=== PATIENT | male | born 1960 | race Caucasian/White ===

== ENCOUNTER → 2019-09-29 08:48 | Outpatient (CLI) | payer BC, SELFPAY | PROVIDERS: PCP Family Medicine; Visit Provider Family Medicine | DX: Z71.3 Dietary counseling and surveillance (principal); E11.9 Type 2 diabetes mellitus without complications | CPT/HCPCS: 97802 ==

== ENCOUNTER 2020-11-10 14:33 | Emergency (ER) | payer BC, SELFPAY ==
[2020-11-10 14:40] VITALS: BP 138/78; PULSE 87; RESP 16; TEMP 37.2; O2SAT 98; BMI 32.5
--- NOTE | 2020-11-10 14:47 | HMH.EDUTC ---
[facility] [place] Disposition Clinical Impression: Viral syndrome, Exposure to COVID-19 virus, Bronchitis Disposition: Home, Self-Care Condition on Discharge: Good Instructions: DI for COVID-19 (Suspected or Confirmed ), Preventing the Spread of Coronavirus Discharge Instructions Additional Instructions: Drink plenty of fluids. Take tylenol for pain or fever. Return if you begin to have difficulty breathing. Follow up with your regular doctor. GO TO THE ER FOR ANY WORSENING SYMPTOMS Prescriptions: Ondansetron [Zofran 4mg ODT] 4 mg PO Q8HP PRN #12 tab.rapdis PRN Reason: Nausea [facility] Benzonatate [Tessalon Perle 100mg Cap] 100 mg PO TIDP PRN #30 cap PRN Reason: Cough Transmission Status: [facility] Azithromycin [Z-Kelvin 250mg Tab*] 250 mg PO UD DOSE PK #6 tab Transmission Status[facility] Referrals: Rodrick Shah [Primary Care Provider] - Time of Disposition: 14:53 Medical Decision Making - Medical Records Medical records reviewed: No: I reviewed the patient's medical records. - Minesh Inquiry Pt receiving controlled substance: No Vital Signs: 11/10/20 14:40 11/10/20 14:57 Temperature 98.9 F 98.9 F Temperature Source Oral Oral Pulse Rate 88 Pulse Rate [Right] 87 Respiratory Rate 16 16 Blood Pressure 130/70 Blood Pressure [Right Arm] 138/78 Blood Pressure Mean [Right Arm] 98 Blood Pressure Source Automatic Cuff Blood Pressure Source [Right Arm] Automatic Cuff Blood Pressure Position Sitting 02 Sat by Pulse Oximetry 98 Oxygen Delivery Method Room Air Room Air Orders (Tests/Meds): ORDERS Category Date Time Status Covid-19 Nasal PCR ([facility]) Routine Lab 11/10/20 14:40 Received [facility] [place] HPI - General Stated complaint: covid test Time Seen by Provider: 11/10/20 14:47 Mode of Arrival: Ambulatory Source of Information: Patient Limitations: No Limitations Description of Symptoms (Recalled from Triage Doc. by RN): pt advises he has been feeling bad, with chills, low grade fever, body aches and yesterday he started losing his taste and smell HEENT Symptoms (Recalled from RN notes): No Resp Symptoms (Recalled from RN notes): No Skin Symptoms (Recalled from RN notes): No MS Symptoms (Recalled from RN notes): No Functional Status (Recalled from RN notes): na - History of Present Illness Provider Complaint: He states that for the past 4 days he has been having a scratchy sore throat, cough, chest congestion, and body aches. - Related Data Previous Rx's Medication Instructions Recorded Azithromycin [Z-Kelvin 250mg Tab*] 250 mg PO UD DOSE PK #6 tab 11/10/20 Benzonatate [Tessalon Perle 100mg 100 mg PO TIDP PRN #30 cap 11/10/20 Cap] Ondansetron [Zofran 4mg ODT] 4 mg PO Q8HP PRN #12 tab.rapdis 11/10/20 Allergies Allergy/AdvReac Type Severity Reaction Status Date / Time No Known Allergies Allergy Verified 11/10/20 14:44 - Worker's Comp Is this a Worker's Comp case?: No [facility] History - Hepatitis A Screen Drug use history?: No High risk sexual behaviors?: No History of sexually transmitted infection?: No Currently employed?: No Childcare worker?: No Do you have indoor plumbing?: Yes Do you have electricity?: Yes Attestation statement:: This patient has been screened for Hepatitis A risk factors. I have reviewed the patient's past medical history: Yes ROS Obtained: Yes All systems reviewed & no additional complaints - Constitutional Constitutional: Reports body ache, Reports chills, Denies fever(s), Reports poor appetite, Reports malaise - Eyes Eyes: Denies change in vision, Denies eye discharge - ENT Ears, Nose, Mouth, and Throat: Reports as per HPI - Cardiovascular Cardiovascular: Denies chest pain - Respiratory Respiratory: Reports chest congestion, Reports cough, Denies dyspnea, Denies stridor, Denies wheezing - Gastrointestinal Gastrointestingal: Den
[2020-11-10 14:57] VITALS: BP 130/70; PULSE 88; RESP 16; TEMP 37.2; O2SAT 98
--- NOTE | 2020-11-11 09:14 | PC.NURSE ---
patient notified of positive covid results
== END 2020-11-10 14:58 | disposition home or self-care (01) ==
PROVIDERS: Emergency Provider Nurse Practitioner Family; PCP Family Medicine
DX: U07.1 COVID-19 (principal); J20.9 Acute bronchitis, unspecified
CPT/HCPCS: 99202; G0463; U0003

== ENCOUNTER → 2020-11-18 15:26 | Outpatient (CLI) | payer BC, SELFPAY ==
--- NOTE | 2020-11-18 15:30 | XR_ITS ---
PROCEDURE: XR KUB CLINICAL INDICATION: kidney stone Right-sided pain COMPARISON: No exams were available for comparison FINDINGS: No renal calculi evident. There is a 4 mm calcific density in the right pelvic region. This may represent a phleboliths. There are no previous exams available for comparison. IMPRESSION: Suspected phleboliths in the right pelvic region. A distal ureteral stone is not excluded. Dictated by: Bradley Fontanez MD 11/18/2020 15:48 Bradley Fontanez MD in [place] 11/18/2020 15:48
[2020-11-19 10:55] LABS: Coronavirus 19 IgG Antibody Positive (Negative)
[2020-11-19 10:56] LABS: Coronavirus 19 IgM Antibody Positive (Negative)
== END ==
LOC: RAD 15:27 → COVID.OUT 16:18
PROVIDERS: PCP Family Medicine; Visit Provider Urology
DX: Z01.818 Encounter for other preprocedural examination (principal); Z20.822 Contact with and (suspected) exposure to COVID-19; U07.1 COVID-19; N20.0 Calculus of kidney; N20.1 Calculus of ureter
CPT/HCPCS: 74018; 86328; U0003

== ENCOUNTER 2020-11-21 07:33 | Day surgery (SDC) | payer BC, SELFPAY ==
[2020-11-21 08:00] VITALS: BP 126/76; PULSE 88; RESP 18; TEMP 36.6; O2SAT 98; BMI 33.0
[2020-11-21 08:25] LABS: POC Glucose,Bedside 98 (70-110)
--- NOTE | 2020-11-21 09:46 | HMH.ANESCL ---
[facility] Anesthesia Checklist - Patient Identification Patient Identification: Arm Band - Structural Data Admitted From: Home Planned Operative Procedure/s: Right ureteroscopy with laser stone extraction Consent for Planned Operative Procedure(s) Verified: Yes Verified Documents: Surgical Consent, History and Physical - NPO Status Verified Time NPO: 00:00 - Additional verifications Anesthesia Reactions: Yes (nausea) Hx Blood Transfusions: No Blood Transfusion Reaction: No - Airway Assessment C-Spine Mobility Assessed: Yes (mp2) TMJ Mobility Assessed: Yes Dentition: Good Dentition - Neurological Assessment Level of Consciousness: Awake, Alert - Anesthesia Plan Anesthesia Risk discussed: Yes Anesthesia Plan: Verified ASA Class: II Anesthesia Type: General [facility] History Medical History: Reports:: Diabetes Mellitus Type 2, Hyperlipidemia, Hypertension, Kidney Stones Denies:: Cancer, Diabetes Mellitus Type 1, Internal Pacemaker, MRSA, Seizures *Have you ever received a pneumonia vaccine?: No *Have you received a flu vaccine this season?: Yes Other Medical History: Reports: Thyroid Disease. Denies: Blood Transfusion Reaction Anesthesia experience/problems:: nac Laterality Cases: Bilateral: Arthroscopy Shoulder Other Surgeries: Yes: Colonoscopy. No: Pacemaker Amputation: No - *Social History Last grade of school completed: High school graduate Smoking Status: Never smoker Alcohol Intake: never Substance Use Type: denies use *Occupational Status:: employed, unemployed Housing: house Household Members: spouse *Travel in the last 8 weeks: None Family Hx:: Cancer, Diabetes, Hypertension
--- NOTE | 2020-11-21 10:27 | XR_ITS ---
PROCEDURE: XR KUB CLINICAL INDICATION: URETEROSCOPY WITH STONE EXTRACTION COMPARISON: DX XR KUB from 11/18/2020 FINDINGS: Fluoroscopy time: 1 minutes and 9 seconds. Right ureteroscopy was performed with stone extraction the distal ureter. A ureteral stent was then placed with the proximal aspect in the right mid abdominal region and the lower aspect in the region of urinary bladder. IMPRESSION: Status post stone extraction with stent placement Dictated by: Bradley Fontanez MD 11/21/2020 15:40 Bradley Fontanez MD in [place] 11/21/2020 15:40
--- NOTE | 2020-11-21 10:32 | P.PN_ITS ---
[facility] Anesthesia Record Part I Intake, IV Amount: 1,000 Estimated blood loss (mL): 0 Urine output (mL): 0 Blood Pressure: 116/79 SaO2: 94 Pulse Rate: 100 Respiratory Rate: 16 Temperature: 97.6 F Patient is:: Drowsy, Stable Stable to PACU at:: 10:25
[2020-11-21 10:33] VITALS: BP 116/79; PULSE 100; RESP 16; TEMP 36.4; O2SAT 94
[2020-11-21 10:35] VITALS: BP 132/49; PULSE 94; RESP 16; TEMP 36.4; O2SAT 96
[2020-11-21 10:45] VITALS: BP 126/86; PULSE 103; RESP 16; O2SAT 96
[2020-11-21 10:55] VITALS: BP 136/68; PULSE 102; RESP 16; O2SAT 96
[2020-11-21 11:05] VITALS: BP 138/85; PULSE 101; TEMP 36.4; O2SAT 94
--- NOTE | 2020-11-21 11:15 | P.OP_ITS ---
Date of procedure: 11/21/20 Pre-op Diagnosis:: Right distal ureteral stone Post-op Diagnosis:: Right distal ureteral stone/ureteral stenosis Procedure performed:: Cystoscopy with right ureteral dilation, right ureteroscopy, laser lithotripsy left ureteral stone, stone extraction and right stent placement Surgeon:: Gray Caballero MD RESEARCH/PROGRAM DIRECTOR:: Owen Howell Anesthesia: GETA Estimated blood loss (mL): 0 Clinical Note:: Patient is a 60-year-old white male with a several week history of right flank pain noted to have a 5 mm distal ureteral stone on recent CT scan. He continues to be symptomatic and wishes to proceed with urologic management. He was tested positive for Covid-19 9 days ago. This was not known to me at the time of his office visit and we are going to proceed with his surgery under PPE. Operative findings:: 5 mm right distal ureteral stone with right ureteral stenosis Operative note:: Patient taken to the operating room after informed consent was obtained. He was placed on the operating table in the supine position and general anesthesia administered. Preoperative antibiotics and sequential compression devices were placed. Was then placed into the dorsal lithotomy position and prepped and draped in the standard surgical fashion. A 22 Norwegian cystoscope was introduced into the urethral meatus. Passed into the bladder without difficulty and the bladder examined in a systematic fashion. There is no evidence of mucosal changes, stones, diverticula or trabeculation. The ureteral orifices in their normal anatomic position. Small median lobe was noted. A guidewire was passed into the right distal ureteral orifice and under fluoroscopy passed by the stone without difficulty. The cystoscope then removed and our semirigid ureteroscope passed into the bladder and into the distal ureter but there was a stenotic portion of the ureter just inside the ureteral orifice so the ureteroscope was removed and the distal ureter was dilated with a 4 x 15 mm UroMax balloon dilator under fluoroscopic guidance for 2 minutes at 12 bisi. The balloon then deflated and the semirigid ureteroscope was passed back into the bladder and into the right ureteral orifice. It bypassed the ureteral stenosis now without difficulty and up to the level of the stone. Stone was grasped with a 2.4 Norwegian nitinol stone basket but was too big to bring through the ureter. We then disengaged the stone and a 200 nm laser passed through the scope and the stone fragmented into small pieces. The laser fiber removed and our stone basket was replaced and all the stone fragments were removed without difficulty. The ureteroscope then removed and the cystoscope was backloaded over the safety wire and a 4.8 x 26 Norwegian stent was passed over the wire and the wire removed. A good curl was noted proximally and distally under fluoroscopy. The string was left on for later removal. Urojet was placed into the urethra for comfort measures. The patient tolerated procedure well. Condition: stable Disposition: PACU Specimens:: Stone fragments were irrigated free but not sent Complications:: None
--- NOTE | 2020-11-21 15:44 | SUR.OPER ---
PPE worn by all staff members
--- NOTE | 2020-11-22 09:48 | HMH.ANESII ---
[facility] Anesthesia Record Part II Discharge Time: 10:35 Destination: Surgical Day Care (OP Surgery) PACU nurse assessment reviewed?: Yes Patient Condition:: Good Anesthesia Complications:: None Swallowing reflex intact?: Yes Cyanosis?: No Blood Pressure: 132/49 Pulse Rate: 92 Temperature: 97.6 F Mental Status: Alert & Oriented Pain level:: 0 Nausea and/or vomitting:: None Intake, IV Amount: 0
[2020-11-22 09:49] VITALS: BP 132/49; PULSE 92; TEMP 36.4
== END 2020-11-21 11:13 | disposition home or self-care (01) ==
LOC: OR 07:35
PROVIDERS: PCP Family Medicine; Visit Provider Urology
PROC: (CPT 52352; principal; 2020-11-21 09:00)
DX: N20.1 Calculus of ureter (principal); N35.919 Unspecified urethral stricture, male, unspecified site; Z87.442 Personal history of urinary calculi; E11.9 Type 2 diabetes mellitus without complications; I10 Essential (primary) hypertension; E78.5 Hyperlipidemia, unspecified; E07.9 Disorder of thyroid, unspecified; Z87.39 Personal history of other diseases of the musculoskeletal system and connective tissue; Z80.9 Family history of malignant neoplasm, unspecified; Z83.3 Family history of diabetes mellitus; Z82.49 Family history of ischemic heart disease and other diseases of the circulatory system; Z79.899 Other long term (current) drug therapy
CPT/HCPCS: 52353; 74018; 76000; 82962; C2617; J2405

== ENCOUNTER 2021-05-05 11:13 | Emergency (ER) | payer BC, SELFPAY ==
[2021-05-05 11:15] VITALS: BP 124/84; PULSE 94; RESP 19; TEMP 36.9; O2SAT 97; BMI 34.0
--- NOTE | 2021-05-05 11:55 | HMH.EDUTC ---
[facility] [place] Disposition Clinical Impression: Sinusitis Qualifiers: Sinusitis location: unspecified location Chronicity: unspecified Qualified Code(s): J32.9 - Chronic sinusitis, unspecified Disposition: Home, Self-Care Condition on Discharge: Good Instructions: Sinusitis, DI for Sinusitis, DI for COVID-19 (Suspected or Confirmed ), Preventing the Spread of Coronavirus Discharge Instructions Additional Instructions: *Monitor Temp, Over the counter Motrin or Tylenol as directed/as needed Tylenol every 4 hours and Motrin every 6 hours (as long as your family doctor has told you that you can take it) for fever or pain. and straight to ER if unable to lower temp less than 101.0 after medication given *Warm salt water gargles may help to soothe the throat *Throat Lozenges *Warm fluids like tea with honey may help to soothe the throat *Sleep elevated *Humidifier/Vaporizer *Flonase 2 sprays in each nostril daily but be aware that it may take 2-3 days before you notice improvement Take medication as prescribed Return if needed Follow up IMMEDIATELY for new or worsening symptoms or no Noticeable improvement over the next 48-72 hours. 911 for difficulty breathing or swallowing You were tested for today for COVID19 your test result should be back in the next 24-48 hours, you may call to the [facility] to see if your test results are back in the next 48 hours [phone] [facility] hours are 9am-9pm You was given a handout with instructions for Self Quarantine and Self isolation for while you wait on test results and what to do if they are positive If you are positive the Health Dept will be contacting you also Make sure to take your Vitamins Vit. C Vit D and Zinc if you can take them Prescriptions: Benzonatate [Tessalon Perle 100mg Cap*] 100 mg PO TID PRN #15 cap PRN Reason: Cough Transmission Status: [facility] Azithromycin [Z-Kelvin 250mg Tab] 250 mg PO DIRECTED #6 tab Transmission Status: [facility] to [facility] Referrals: Ryan Holliday MD [Primary Care Provider] - As needed Time of Disposition: 12:05 Medical Decision Making - Minesh Inquiry Pt receiving controlled substance: No Minesh was queried for this patient: No Vital Signs: 08/13/21 11:15 Temperature 98.5 F Temperature Source Oral Pulse Rate [Right Brachial] 94 H Respiratory Rate 19 Blood Pressure [Right Arm] 124/84 Blood Pressure Mean [Right Arm] 97 Blood Pressure Source [Right Arm] Automatic Cuff Blood Pressure Position [Right Arm] Sitting 02 Sat by Pulse Oximetry 97 Oxygen Delivery Method Room Air Orders (Tests/Meds): ORDERS Category Date Time Status Covid-19 Nasal PCR ([facility]) Routine Lab 05/05/21 11:40 Received Medical Decision Narrative: Patient states that he has taken azithromycin in the past without reactions or complications [facility] [place] HPI - General Stated complaint: sinus drainage, covid test Time Seen by Provider: 05/05/21 11:55 Mode of Arrival: Ambulatory Source of Information: Patient Limitations: No Limitations Description of Symptoms (Recalled from Triage Doc. by RN): PATIENT C/O COUGH WITH DARK GREEN SPUTUM AND SINUS PRESSURE HEENT Symptoms (Recalled from RN notes): Yes Resp Symptoms (Recalled from RN notes): Yes Skin Symptoms (Recalled from RN notes): No MS Symptoms (Recalled from RN notes): No Functional Status (Recalled from RN notes): WNL - History of Present Illness Provider Complaint: Patient state that he has been having sinus pain and pressure for over a week with dark greenish yellow mucous States that it feels like it is draining in the back of his throat and making him cough States that he was worried he may have COVID or a sinus infection and wanted to get checked - Related Data Home Medications Medication Instructions Recorded Confirmed metformin 500 mg tablet 1,000 mg PO BID 11/18/20 05/05/21 Atorvastatin Calcium [Lipitor 10mg 10 mg PO HS 05/05/21 05/05/21 Tab] Esomeprazole Magne
[2021-05-05 12:07] VITALS: BP 124/84; PULSE 94; RESP 19; TEMP 36.9; O2SAT 97
--- NOTE | 2021-05-05 20:51 | PC.NURSE ---
pt notified of positive covid test results
== END 2021-05-05 12:10 | disposition home or self-care (01) ==
PROVIDERS: Emergency Provider Nurse Practitioner; PCP Internal Medicine Adolescent Medicine
DX: U07.1 COVID-19 (principal); I10 Essential (primary) hypertension; E78.5 Hyperlipidemia, unspecified; E11.9 Type 2 diabetes mellitus without complications; Z79.899 Other long term (current) drug therapy
CPT/HCPCS: 99202; G0463; U0003

== ENCOUNTER → 2021-05-18 18:22 | Outpatient (CLI) | payer BC, SELFPAY ==
[2021-05-18 19:29] LABS: Alanine Aminotransferase 22 U/L (12-78); Albumin Level 4.5 g/dl (3.5-5.0); Albumin/Globulin Ratio 1.5 (1.1-1.8); Alkaline Phosphatase 43 U/L (38-126); Anion Gap 16.9 mEq/L (5-15); Aspartate Amino Transferase 30 U/L (17-59); Bilirubin,Total 0.5 mg/dl (0.2-1.3); Blood Urea Nitrogen 30 mg/dl (9-20); Calcium 10.5 mg/dl (8.4-10.2); Carbon Dioxide 25 mmol/L (22.0-30.0); Chloride 102 mmol/L (98-107); Chol/HDL Ratio 4.4 (1-3.5); Cholesterol 144 mg/dl (140-200); Estimated Glomerular Filt Rate 45 ml/min (>60); GFR (African American) 54 ML/MIN (>60); Glucose 112 mg/dl (74-100); HDL Cholesterol 33 mg/dl (40-60); Potassium 4.9 mmoL/L (3.5-5.1); Sodium 139 mmol/L (136-145); Total Protein,Serum 7.5 g/dl (6.3-8.2); Triglycerides 183 mg/dl (30-150); VLDL Cholesterol 37 mg/dL (0-40)
[2021-05-18 19:40] LABS: Direct LDL Cholesterol 82.38 mg/dL (100-129)
[2021-05-18 20:00] LABS: Thyroid Stimulating Hormone 2.56 uIU/mL (0.465-4.68)
== END ==
PROVIDERS: Visit Provider Internal Medicine Adolescent Medicine
DX: I10 Essential (primary) hypertension (principal); E78.5 Hyperlipidemia, unspecified; E03.9 Hypothyroidism, unspecified; E11.22 Type 2 diabetes mellitus with diabetic chronic kidney disease; Z79.84 Long term (current) use of oral hypoglycemic drugs
CPT/HCPCS: 80053; 80061; 83036; 84443

== ENCOUNTER → 2022-12-26 09:49 | Outpatient (CLI) | payer BC, SELFPAY ==
--- NOTE | 2022-12-26 09:55 | US_ITS ---
FINAL REPORT TECHNIQUE: Ultrasound images of the abdomen were obtained. CLINICAL HISTORY: CHERRI CARDONASAFrancoise COMPARISON: none FINDINGS: ABDOMINAL ULTRASOUND COMPLETE: The liver is fatty infiltrated. The gallbladder is normal. There is no gallbladder wall thickening. The common duct is normal at 6 mm. The right kidney measures 10.5 cm in length and is normal in echogenicity without hydronephrosis. The left kidney measures 10.0 cm in length and is normal in echogenicity without hydronephrosis. The spleen is unremarkable. The pancreas is obscured by overlying bowel gas. The visualized portions of the aorta and the IVC are normal. The vena cava is unremarkable. IMPRESSION: Fatty infiltration of the liver. Reviewed, Interpreted and Dictated by Bulmaro Lamb MD Transcribed by Shannan Templeton Authenticated and [facility]
== END ==
PROVIDERS: PCP Nurse Practitioner Family; Visit Provider Nurse Practitioner Family
DX: R89.9 Unspecified abnormal finding in specimens from other organs, systems and tissues (principal); R94.5 Abnormal results of liver function studies; E78.5 Hyperlipidemia, unspecified; E11.22 Type 2 diabetes mellitus with diabetic chronic kidney disease; N18.30 Chronic kidney disease, stage 3 unspecified; Z79.84 Long term (current) use of oral hypoglycemic drugs
CPT/HCPCS: 76700

== ENCOUNTER 2024-01-27 12:42 | Emergency (ER) | payer BC, SELFPAY ==
[2024-01-27 12:50] VITALS: BP 126/87; PULSE 78; RESP 20; TEMP 36.8; O2SAT 95; BMI 34.1
--- NOTE | 2024-01-27 12:59 | ED_ITS ---
Discharge Plan Disposition Patient Disposition: Home, Self-Care Condition: Good Prescriptions Prescriptions: New azithromycin [Zithromax Z-Kelvin] 250 mg tablet See Rx Instructions .ROUTE .COMPLEX 5 Days Qty: 6 0RF Rx Instructions: For 250 mg dose pack: take 500 mg today (day 1), then 250 mg for 4 days (days 2-5) benzonatate 100 mg capsule 100 mg PO TID PRN (Reason: cough) Qty: 30 0RF guaifenesin [Mucinex] 600 mg tablet extended release 12hr 1,200 mg PO BID PRN (Reason: cough) Qty: 30 0RF No Action atorvastatin 10 mg tablet 10 mg PO HS glipizide 10 mg tablet extended release 24hr 10 mg PO DAILY levothyroxine [Synthroid] 75 mcg tablet 75 mcg PO DAILY esomeprazole magnesium 40 mg capsule,delayed release(DR/EC) 40 mg PO DAILY allopurinol 300 mg tablet 300 mg PO DAILY lisinopril-hydrochlorothiazide 10-12.5 mg tablet 1 tab PO DAILY losartan 100 mg tablet 100 mg PO DAILY metformin 500 mg tablet extended release 24 hr 500 mg PO DAILY fenofibric acid (choline) 135 mg capsule,delayed release(DR/EC) 135 mg PO DAILY dapagliflozin propanediol [Farxiga] 10 mg tablet 10 mg PO DAILY Referrals Follow up/Referrals: Tierney Beasley APRN [Primary Care Provider] - See instructions Activity Restrictions/Add. Instructions Additional Instructions/Restrictions: * Start antibiotic today. Be sure to complete entire prescription even if feeling better * Monitor temp. Tylenol every 4 hours as needed and / or ibuprofen every 6 hours as needed ( As long as your primary care physician has told you that it ok to take both. For fever/aches/pains ER if no less than 101 despite Tylenol or Motrin * Humidifier/vaporizer or hot steamy shower * Mucinex during the day for your cough and cough suppressant only at night. Be sure to drink lots of water. *Tessalon Perles will not cause drowsiness but use at bedtime to help stop cough so that you may get some rest. Follow up IMMEDIATELY for new or worsening of symptoms OR no noticeable improvement over the next 48-72 hours. 911 immediately for any life threatening symptoms such as chest pain or difficulty breathing Clinical Impressions Clinical Impression: Bronchitis Sinusitis Qualifiers: Sinusitis location: unspecified location Chronicity: unspecified Qualified Code(s): J32.9 - Chronic sinusitis, unspecified Instructions Patient Instructions: Acute Bronchitis, DI for Sinusitis Discharge ED Provider: Kristin Day [facility] General Stated complaint: congestion, headache Mode of Arrival: Ambulatory Source of Information: Patient Limitations: No Limitations Time Seen by Provider: 01/27/24 13:00 Description of Symptoms (Recalled from Triage Doc. by RN): PATIENT C/O HEAD AND CHEST CONGESTION AND COUGH X 5 DAYS HEENT Symptoms (Recalled from RN notes): Yes Resp Symptoms (Recalled from RN notes): Yes Skin Symptoms (Recalled from RN notes): No MS Symptoms (Recalled from RN notes): No Functional Status (Recalled from RN notes): WNL History of Present Illness Provider Complaint: Patient states that he has been having sinus pain and pressure, drainage in the back of his throat, and chest congestion States that he will occasionally cough up some mucous but not that much States symptoms has been going on for about a week and not improved so today when he was still not feeling any better he came in Related Data Home Medications Medication Instructions Recorded Confirmed allopurinol 300 mg tablet 300 mg PO DAILY 01/27/24 01/27/24 atorvastatin 10 mg tablet 10 mg PO HS 01/27/24 01/27/24 dapagliflozin propanediol 10 mg 10 mg PO DAILY 01/27/24 01/27/24 tablet (Farxiga) esomeprazole magnesium 40 mg 40 mg PO DAILY 01/27/24 01/27/24 capsule,delayed release fenofibric acid (choline) 135 mg 135 mg PO DAILY 01/27/24 01/27/24 capsule,delayed release glipizide 10 mg tablet, extended 10 mg PO DAILY 01/27/24 01/27/24 release 24 hr levothyroxine 75 mcg tablet 75 mcg PO DAILY 01/27/24 01/27/24 (Synthroid) lisinopril 10 1 tab PO DAILY 01/27/24 01/27/24 mg-hydrochlorothiazide 12.5 mg tablet losartan 100 mg tablet 100 mg PO DAILY 01/27/24 01/27/24 metformin 500 mg tablet,extended 500 mg PO DAILY 01/27/24 01/27/24 release 24 hr Previous Rx's Medication Instructions Recorded azithromycin 250 mg tablet See Rx Instructions PO .COMPLEX 5 01/27/24 (Zithromax Z-Kelvin) days #6 tabs benzonatate 100 mg capsule 100 mg PO TID PRN cough #30 caps 01/27/24 guaifenesin 600 mg tablet, 1,200 mg (2 x 600 mg) PO BID PRN 01/27/24 extended release 12 hr (Mucinex) cough #30 tabs Allergies Allergy/AdvReac Type Severity Reaction Status Date / Time No Known Allergies Allergy Verified 11/24/20 11:33 Worker's Comp Is this a Worker's Comp case?: No PFSH PFS Disclaimer: The information contained in this section may have been updated after the patient was seen, as this information can be updated by other users. Medical History (Updated 01/27/24 @ 13:13 by Kristin Day APRN) Thyroid disease Kidney stone Diabetes mellitus, type 2 Hyperlipidemia Hypertension Social History Smoking Status: Never smoker alcohol intake: never substance use type: denies use current occupational status: other Travel in the last 8 weeks: None household members: spouse housing: house caffeine: Yes ROS Obtained: Yes All systems reviewed & no additional complaints except as documented and Yes Systems reviewed as appropriate & no additional complaints except as documented Constitutional Constitutional: Reports system reviewed and no additional complaints, except as documented, Reports as per HPI and Reports headache(s) ENT Ears, Nose, Mouth, and Throat: Reports system reviewed and no additional complaints, except as documented, Reports as per HPI, Reports headache(s), Reports sinus pain and Reports sinus pressure Cardiovascular Cardiovascular: Reports system reviewed and no additional complaints, except as documented and Reports as per HPI Respiratory Respiratory: Reports system reviewed and no additional complaints, except as documented, Reports as per HPI, Reports chest congestion and Reports cough Gastrointestinal Gastrointestingal: Reports system reviewed and no additional complaints, except as documented and as per HPI Neurologic Neurologic: Reports headache(s) Physical Exam General General appearance: alert and in no apparent distress ENT ENT exam: Present mucous membranes moist Expanded ENT Exam Nose exam: Present sinus tenderness Throat exam: Present other (PND noted) Respiratory Respiratory exam: Present normal lung sounds bilaterally; Absent respiratory distress or wheezes Cardiovascular Cardiovascular exam: Present regular rate, normal rhythm and normal heart sounds Neurological Exam Neurological exam: Present alert, oriented X3 and normal gait Medical Decision Making Minesh Inquiry Pt receiving controlled substance: No Minesh was queried for this patient: No Vital Signs: 01/27/24 12:50 Temperature 98.2 F Temperature Source Oral Pulse Rate [Left Brachial] 78 Respiratory Rate 20 Blood Pressure [Left Arm] 126/87 Blood Pressure Mean [Left Arm] 100 Blood Pressure Source [Left Arm] Automatic Cuff Blood Pressure Position [Left Arm] Sitting 02 Sat by Pulse Oximetry 95 Oxygen Delivery Method Room Air
[2024-01-27 13:18] VITALS: BP 126/87; PULSE 78; RESP 20; TEMP 36.8; O2SAT 95
== END 2024-01-27 13:20 | disposition home or self-care (01) ==
PROVIDERS: Emergency Provider Nurse Practitioner; PCP Nurse Practitioner Family
DX: J20.9 Acute bronchitis, unspecified (principal); J01.90 Acute sinusitis, unspecified; R51.9 Headache, unspecified; R09.82 Postnasal drip
CPT/HCPCS: 99212; 99214; G0463

== ENCOUNTER 2024-04-13 14:56 | Emergency (ER) | payer BC, SELFPAY ==
[2024-04-13 15:25] VITALS: BP 132/90; PULSE 100; RESP 20; TEMP 36.9; O2SAT 95; BMI 34.4
--- NOTE | 2024-04-13 15:38 | ED_ITS ---
Discharge Plan Disposition Patient Disposition: Home, Self-Care Condition: Good Prescriptions Prescriptions: New amoxicillin 875 mg tablet 875 mg PO Q12H Qty: 20 0RF methylprednisolone 4 mg Tablets,Dose Pack 4 mg PO DIRECTED 6 Days Qty: 21 0RF Rx Instructions: Take 1 pack as directed for 6 days No Action atorvastatin 10 mg tablet 10 mg PO HS glipizide 10 mg tablet extended release 24hr 10 mg PO DAILY levothyroxine [Synthroid] 75 mcg tablet 75 mcg PO DAILY esomeprazole magnesium 40 mg capsule,delayed release(DR/EC) 40 mg PO DAILY allopurinol 300 mg tablet 300 mg PO DAILY lisinopril-hydrochlorothiazide 10-12.5 mg tablet 1 tab PO DAILY losartan 100 mg tablet 100 mg PO DAILY metformin 500 mg tablet extended release 24 hr 500 mg PO DAILY fenofibric acid (choline) 135 mg capsule,delayed release(DR/EC) 135 mg PO DAILY dapagliflozin propanediol [Farxiga] 10 mg tablet 10 mg PO DAILY azithromycin [Zithromax Z-Kelvin] 250 mg tablet See Rx Instructions .ROUTE .COMPLEX 5 Days Qty: 6 0RF Rx Instructions: For 250 mg dose pack: take 500 mg today (day 1), then 250 mg for 4 days (days 2-5) benzonatate 100 mg capsule 100 mg PO TID PRN (Reason: cough) Qty: 30 0RF guaifenesin [Mucinex] 600 mg tablet extended release 12hr 1,200 mg PO BID PRN (Reason: cough) Qty: 30 0RF Referrals Follow up/Referrals: Tierney Beasley APRN [Primary Care Provider] - See instructions Activity Restrictions/Add. Instructions Additional Instructions/Restrictions: Drink plenty of fluids. Take tylenol or ibuprofen for pain or fever. Take the medications as directed. Follow up with your regular doctor. GO TO THE ER FOR ANY WORSENING SYMPTOMS Throw your tooth brush away and get a new one. Clinical Impressions Clinical Impression: Strep throat Instructions Patient Instructions: Strep Throat, DI for Strep Throat, Methylprednisolone, Am oxicillin [place] ED [place]: [place] [facility] [place] Stated complaint: sore throat fever 100.7 ear pain nausea Mode of Arrival: Ambulatory Source of Information: Patient Limitations: No Limitations Time Seen by Provider: 04/13/24 15:38 Description of Symptoms (Recalled from Triage Doc. by RN): PATIENT C/O SORE THROAT SINCE YESTERDAY MORNING HEENT Symptoms (Recalled from RN notes): Yes Resp Symptoms (Recalled from RN notes): No Skin Symptoms (Recalled from RN notes): No MS Symptoms (Recalled from RN notes): No Functional Status (Recalled from RN notes): WNL History of Present Illness Provider Complaint: He states that he has had a very sore throat for the past 2 days. He was exposed to strep throat last week. Related Data Home Medications Medication Instructions Recorded Confirmed allopurinol 300 mg tablet 300 mg PO DAILY 01/27/24 01/27/24 atorvastatin 10 mg tablet 10 mg PO HS 01/27/24 01/27/24 dapagliflozin propanediol 10 mg 10 mg PO DAILY 01/27/24 01/27/24 tablet (Farxiga) esomeprazole magnesium 40 mg 40 mg PO DAILY 01/27/24 01/27/24 capsule,delayed release fenofibric acid (choline) 135 mg 135 mg PO DAILY 01/27/24 01/27/24 capsule,delayed release glipizide 10 mg tablet, extended 10 mg PO DAILY 01/27/24 01/27/24 release 24 hr levothyroxine 75 mcg tablet 75 mcg PO DAILY 01/27/24 01/27/24 (Synthroid) lisinopril 10 1 tab PO DAILY 01/27/24 01/27/24 mg-hydrochlorothiazide 12.5 mg tablet losartan 100 mg tablet 100 mg PO DAILY 01/27/24 01/27/24 metformin 500 mg tablet,extended 500 mg PO DAILY 01/27/24 01/27/24 release 24 hr Previous Rx's Medication Instructions Recorded azithromycin 250 mg tablet See Rx Instructions PO .COMPLEX 5 01/27/24 (Zithromax Z-Kelvin) days #6 tabs benzonatate 100 mg capsule 100 mg PO TID PRN cough #30 caps 01/27/24 guaifenesin 600 mg tablet, 1,200 mg (2 x 600 mg) PO BID PRN 01/27/24 extended release 12 hr (Mucinex) cough #30 tabs amoxicillin 875 mg tablet 875 mg PO Q12H #20 tabs 04/13/24 methylprednisolone 4 mg tablets in 4 mg PO DIRECTED 6 days #21 tabs 04/13/24 a dose pack Allergies Allergy/AdvReac Type Severity Reaction Status Date / Time No Known Allergies Allergy Verified 11/24/20 11:33 Worker's Comp Is this a Worker's Comp case?: No [facility] Disclaimer: The information contained in this section may have been updated after the patient was seen, as this information can be updated by other users. Medical History (Updated 04/13/24 @ 15:46 by Ryan Jason APRN) Thyroid disease Kidney stone Diabetes mellitus, type 2 Hyperlipidemia Hypertension Social History Smoking Status: Never smoker alcohol intake: never substance use type: denies use current occupational status: other Travel in the last 8 weeks: None household members: spouse housing: house caffeine: Yes ROS Obtained: Yes All systems reviewed & no additional complaints except as documented Constitutional Constitutional: Reports chills and Reports fever(s) Eyes Eyes: Denies eye discharge ENT Ears, Nose, Mouth, and Throat: Reports as per HPI Cardiovascular Cardiovascular: Denies chest pain Respiratory Respiratory: Denies chest congestion and Reports cough Gastrointestinal Gastrointestingal: Reports nausea; Denies abdominal pain, constipation, cramping, diarrhea or vomiting Musculoskeletal Musculoskeletal: Denies arthralgias Integumentary/Breasts Skin/Breast: Denies rash Neurologic Neurologic: Denies paresthesias Physical Exam General General appearance: alert and in no apparent distress Head Head exam: atraumatic, normocephalic and normal inspection Eye Eye exam: Present normal appearance, PERRL and EOMI ENT ENT exam: Present mucous membranes moist and normal external ear exam Expanded ENT Exam TM/Canal exam: Bilateral TM: erythema and bulging Nose exam: Absent sinus tenderness Mouth exam: Present normal external inspection; Absent drooling Teeth exam: Present normal inspection Throat exam: Present tonsillar erythema, tonsillomegaly and tonsillar exudate Neck Neck exam: Present normal inspection, full ROM and trachea midline; Absent tenderness, meningismus or lymphadenopathy Chest Chest inspection: Present normal inspection and symmetric chest wall rise; Absent tenderness Respiratory Respiratory exam: Present normal lung sounds bilaterally; Absent respiratory distress, wheezes, stridor or accessory muscle use Cardiovascular Cardiovascular exam: Present regular rate and normal rhythm; Absent systolic murmur or diastolic murmur Abdominal Exam Abdominal exam: Present soft and normal bowel sounds; Absent distention, tenderness, guarding, rebound or rigidity Extremities Exam Extremities exam: Present normal inspection and normal capillary refill; Absent calf tenderness Back Exam Back exam: Present normal inspection and full ROM; Absent tenderness, CVA tenderness (R) or CVA tenderness (L) Neurological Exam Neurological exam: Present alert, oriented X3 and CN II-XII intact Psychiatric Psychiatric exam: Present normal affect and normal mood Skin Skin exam: Present warm, dry, intact and normal color Medical Decision Making Medical Records Medical records reviewed: No I reviewed the patient's medical records. Minesh Inquiry Pt receiving controlled substance: No Vital Signs: 04/13/24 15:25 Temperature 98.5 F Temperature Source Oral Pulse Rate [Left Brachial] 100 H Respiratory Rate 20 Blood Pressure [Left Arm] 132/90 Blood Pressure Mean [Left Arm] 104 Blood Pressure Source [Left Arm] Automatic Cuff Blood Pressure Position [Left Arm] Sitting 02 Sat by Pulse Oximetry 95 Oxygen Delivery Method Room Air Lab Data Lab results reviewed: Yes I reviewed the patient's lab results.
[2024-04-13 15:40] VITALS: BP 132/90; PULSE 100; RESP 20; TEMP 36.9; O2SAT 95
[2024-04-13 15:41] LABS: UTC Strep Screen (Rapid) Positive (Negative)
== END 2024-04-13 15:42 | disposition home or self-care (01) ==
PROVIDERS: Emergency Provider Nurse Practitioner Family; PCP Nurse Practitioner Family
DX: J02.0 Streptococcal pharyngitis (principal); R50.9 Fever, unspecified; R11.0 Nausea; H92.09 Otalgia, unspecified ear; R07.0 Pain in throat; E11.9 Type 2 diabetes mellitus without complications; I10 Essential (primary) hypertension; E78.5 Hyperlipidemia, unspecified; E07.9 Disorder of thyroid, unspecified; Z79.84 Long term (current) use of oral hypoglycemic drugs
CPT/HCPCS: 87880; 99212; 99214; G0463

== ENCOUNTER 2024-04-25 08:16 | Emergency (ER) | payer BC, SELFPAY ==
[2024-04-25 08:35] VITALS: BP 143/91; PULSE 80; RESP 20; TEMP 36.8; O2SAT 97; BMI 34.7
[2024-04-25 09:05] LABS: POC Glucose,Bedside 242 (70-110)
--- NOTE | 2024-04-25 09:15 | EXP.UTC ---
Discharge Plan Disposition Patient Disposition: Home, Self-Care Condition: Good Prescriptions Prescriptions: New fluconazole 150 mg tablet 150 mg PO Q3D Qty: 2 0RF Rx Instructions: Take one tablet now and then may repeat in 3 days if still having symptoms nystatin 100,000 unit/gram powder 1 applic topical BID Qty: 60 0RF Rx Instructions: apply to area as directed No Action atorvastatin 10 mg tablet 10 mg PO DAILY glipizide 10 mg tablet extended release 24hr 10 mg PO DAILY levothyroxine [Synthroid] 75 mcg tablet 75 mcg PO DAILY esomeprazole magnesium 40 mg capsule,delayed release(DR/EC) 40 mg PO DAILY allopurinol 300 mg tablet 300 mg PO DAILY losartan 100 mg tablet 100 mg PO DAILY metformin 500 mg tablet extended release 24 hr 500 mg PO DAILY fenofibric acid (choline) 135 mg capsule,delayed release(DR/EC) 135 mg PO DAILY dapagliflozin propanediol [Farxiga] 10 mg tablet 10 mg PO DAILY Mounjaro 2.5 mg/0.5 mL pen injector 1 mg SQ WEEKLY Patient Comments: INJECT 1 MG ONCE A WEEK Referrals Follow up/Referrals: Tierney Beasley APRN [Primary Care Provider] - See instructions Activity Restrictions/Add. Instructions Additional Instructions/Restrictions: take Fluoconazole as prescribed Use topical powder on area as directed Follow up with your Family Doctor on Saturday as discussed Straight to ER if any life threatening symptoms Clinical Impressions Clinical Impression: Yeast dermatitis of penis Instructions Patient Instructions: Fluconazole, Nystatin Topical, Nystatin Print Language Print Language: [place] Discharge ED Provider: Kristin Day [facility] [place] General Stated complaint: possible uti Mode of Arrival: Ambulatory Source of Information: Patient Limitations: No Limitations Time Seen by Provider: 04/25/24 09:16 Description of Symptoms (Recalled from Triage Doc. by RN): PATIENT C/O BURNING AND FREQUENCY WITH URINATION AND REDNESS/ITCHING TO GENITAL AREA X 4 DAYS HEENT Symptoms (Recalled from RN notes): No Resp Symptoms (Recalled from RN notes): No Skin Symptoms (Recalled from RN notes): No MS Symptoms (Recalled from RN notes): No Functional Status (Recalled from RN notes): WNL History of Present Illness Provider Complaint: Patient states that for the last few days he has been having redness, itching and irritation when he urinates States that he was on Farxiga and he read that this could be a side effect of this medication so he stopped it and started using gold ramsay powder down there and it has helped a little but today was still feeling itchy on the inside of his penis and felt like he was urinating alot worried he may have a UTI Related Data Home Medications ?Medication ?Instructions ?Recorded ?Confirmed allopurinol 300 mg tablet 300 mg PO DAILY 04/25/24 04/25/24 atorvastatin 10 mg tablet 10 mg PO DAILY 04/25/24 04/25/24 dapagliflozin propanediol 10 mg 10 mg PO DAILY 04/25/24 04/25/24 tablet (Farxiga) esomeprazole magnesium 40 mg 40 mg PO DAILY 04/25/24 04/25/24 capsule,delayed release fenofibric acid (choline) 135 mg 135 mg PO DAILY 04/25/24 04/25/24 capsule,delayed release glipizide 10 mg tablet, extended 10 mg PO DAILY 04/25/24 04/25/24 release 24 hr levothyroxine 75 mcg tablet 75 mcg PO DAILY 04/25/24 04/25/24 (Synthroid) losartan 100 mg tablet 100 mg PO DAILY 04/25/24 04/25/24 metformin 500 mg tablet,extended 500 mg PO DAILY 04/25/24 04/25/24 release 24 hr tirzepatide 2.5 mg/0.5 mL 1 mg SQ WEEKLY 04/25/24 04/25/24 subcutaneous pen injector (Pedro) Previous Rx's ?Medication ?Instructions ?Recorded fluconazole 150 mg tablet 150 mg PO Q3D 2 doses #2 tabs 04/25/24 nystatin 100,000 unit/gram topical 1 applic topical BID #60 grams 04/25/24 powder Allergies Allergy/AdvReac Type Severity Reaction Status Date / Time No Known Allergies Allergy Verified 11/24/20 11:33 Worker's Comp Is this a Worker's Comp case?: No [facility] Disclaimer: The information contained in this section may have been updated after the patient was seen, as this information can be updated by other users. Medical History (Updated 04/25/24 @ 09:33 by Kristin Day APRN) Thyroid disease Kidney stone Diabetes mellitus, type 2 Hyperlipidemia Hypertension Social History Smoking Status: Never smoker alcohol intake: never substance use type: denies use current occupational status: other Travel in the last 8 weeks: None household members: spouse housing: house caffeine: Yes ROS Obtained: Yes All systems reviewed & no additional complaints except as documented and Yes Systems reviewed as appropriate & no additional complaints except as documented Constitutional Constitutional: Reports system reviewed and no additional complaints, except as documented, Reports as per HPI, Denies excessive sweating and Denies fatigue Cardiovascular Cardiovascular: Reports system reviewed and no additional complaints, except as documented and Denies palpitations Respiratory Respiratory: Reports system reviewed and no additional complaints, except as documented and Reports as per HPI Gastrointestinal Gastrointestingal: Reports system reviewed and no additional complaints, except as documented and as per HPI; Denies abdominal pain, nausea or vomiting Genitourinary Male Genitourinary: Reports system reviewed and no additional complaints, except as documented, Reports as per HPI, Denies change in libido, Denies penile discharge, Denies testicular pain, Reports urinary frequency, Reports urinary urgency and Reports other (penile itching and redness) Integumentary/Breasts Skin/Breast: Reports system reviewed and no additional complaints, except as documented and Reports as per HPI Neurologic Neurologic: Reports system reviewed and no additional complaints, except as documented and Reports as per HPI Endocrine Endocrine: Reports system reviewed and no additional complaints, except as documented, Reports as per HPI, Denies change in libido, Denies cold intolerance, Denies deepening of the voice, Denies excessive sweating, Denies fatigue, Denies flushing, Denies heat intolerance, Denies palpitations, Denies polydipsia and Denies polyphagia Physical Exam General General appearance: alert and in no apparent distress ENT ENT exam: Present mucous membranes moist Respiratory Respiratory exam: Present normal lung sounds bilaterally; Absent respiratory distress or wheezes Cardiovascular Cardiovascular exam: Present regular rate, normal rhythm and normal heart sounds Abdominal Exam Abdominal exam: Present soft and normal bowel sounds; Absent distention or tenderness exam: Present other (redness and irritation noted to skin on penis appears like yeast skin infection) Neurological Exam Neurological exam: Present alert, oriented X3 and normal gait Medical Decision Making Minesh Inquiry Pt receiving controlled substance: No Minesh was queried for this patient: No Vital Signs: 04/25/24 08:35 Temperature 98.2 F Temperature Source Oral Pulse Rate [Left Brachial] 80 Respiratory Rate 20 Blood Pressure [Left Arm] 143/91 H Blood Pressure Mean [Left Arm] 108 Blood Pressure Source [Left Arm] Automatic Cuff Blood Pressure Position [Left Arm] Sitting 02 Sat by Pulse Oximetry 97 Oxygen Delivery Method Room Air Lab Data Lab results reviewed: Yes I reviewed the patient's lab results. Lab Results 04/25/24 08:57: POC Glucose 242 H Orders (Tests/Meds): ORDERS Category Date Time Status POC Glucose,Bedside Routine Lab 04/25/24 08:57 Completed Medical Decision Narrative: Patient advised she he recently stopped taking his Farxiga and having redness, itching and sensitivity to penile area appears like yeast Patient educated to make sure to drink plenty of fluids and follow up with PCP on Saturday since abruptly stopping prescribed medication and go straight to ER if any worsening of symptoms like we discussed including but not limited too extreme thirst, fruity smelling breath, stomach pain ETc patient was given strict return precautions
[2024-04-25 09:37] VITALS: BP 143/91; PULSE 80; RESP 20; TEMP 36.8; O2SAT 97
[2024-04-25 10:32] LABS: Apearance,Urine Clear (Clear); Bilirubin,Urine Negative (Negative); Blood, Urine Negative (Negative); Color,Urine Yellow (Yellow); Glucose,Urine (UA) >=1000 (Negative); Ketones,Urine TRACE (Negative); PH,Urine 5.5 (5.0-8.5); Protein,Urine Negative (Negative); Specific Gravity, Urine >= 1.030 (1.005-1.030); UTC Leukocyte Esterase,Urine Negative (Negative); UTC Nitrate,Urine Negative (Negative); Urobilinogen,Urine 0.2 EU/dl (0.2)
== END 2024-04-25 09:40 | disposition home or self-care (01) ==
PROVIDERS: Emergency Provider Nurse Practitioner; PCP Nurse Practitioner Family
DX: B37.49 Other urogenital candidiasis (principal); E11.9 Type 2 diabetes mellitus without complications; Z79.84 Long term (current) use of oral hypoglycemic drugs; Z79.85 Long-term (current) use of injectable non-insulin antidiabetic drugs
CPT/HCPCS: 81003; 82962; 99212; 99214; G0463

== ENCOUNTER 2025-01-07 10:12 | Outpatient (CLI) | payer BC, SELFPAY ==
[2025-01-07 10:22] LABS: Microscopic, Urine URINE MICROSCOPIC (MICROSCOPIC)
[2025-01-07 10:33] LABS: Appearance,Urine CLEAR (Clear); Bilirubin,Urine Negative (Negative); Blood, Urine Negative (Negative); Color,Urine YELLOW (Yellow); Glucose,Urine (UA) Negative (Negative); Ketones,Urine Negative (Negative); Leukocyte Esterase,Urine Negative (Negative); Nitrate,Urine Negative (Negative); Protein,Urine Negative (Negative); Specific Gravity, Urine >= 1.030 (1.005-1.030); Urobilinogen,Urine 0.2 EU/dl (0.2)
[2025-01-07 10:34] LABS: Hematocrit 47.6 % (42.0-52.0); Hemoglobin 16.1 g/dL (14.1-18.0); Mean Corpuscular HGB Conc 33.8 g/dL (31.8-35.4); Mean Corpuscular Hemoglobin 30.6 pg (27.0-31.2); Mean Corpuscular Volume 90.5 fl (80-94); Nucleated Red Blood Cells # 0 10^3/uL; Nucleated Red Blood Cells % 0 %; Platelet Count 320 K/mm3 (142-424); Red Blood Count 5.26 M/mm3 (4.60-6.20); Red Cell Distribution Width 12.9 % (11.5-17.5); Red Cell Distribution Width-SD 42.7 fL; White Blood Count 7.1 K/mm3 (4.8-10.8)
[2025-01-07 10:47] LABS: Creatinine,Urine Random 259 mg/dL (Not Estab.); Total Protein,Urine Random < 5.0 mg/dL (0.0-12.0)
[2025-01-07 10:54] LABS: Albumin Level 4.6 g/dl (3.5-5.0); Anion Gap 18.3 mEq/L (5-15); Blood Urea Nitrogen 17 mg/dl (9-20); Carbon Dioxide 22 mmol/L (22.0-30.0); Chloride 105 mmol/L (98-107); Estimated Glomerular Filt Rate 61 ml/min (>60); GFR (African American) 74 ML/MIN (>60); Glucose 143 mg/dl (74-100); Phosphorous 2.2 mg/dl (2.5-4.5); Potassium 4.3 mmoL/L (3.5-5.1); Sodium 141 mmol/L (136-145)
[2025-01-07 10:57] LABS: Bacteria,Urine Trace /lpf
[2025-01-07 11:06] LABS: Intact Parathyroid Hormone 11.1 pg/mL (7.5-53.5)
[2025-01-07 11:11] LABS: 25-OH Vitamin D, Total 62.8 ng/mL (30-100)
[2025-01-08 15:11] LABS: Calcium, Ionized 5.4 mg/dL (4.5-5.6)
== END 2025-01-07 23:59 | disposition home or self-care (01) ==
LOC: LAB 10:13
PROVIDERS: PCP Nurse Practitioner Family; Visit Provider Nurse Practitioner
DX: E83.52 Hypercalcemia (principal)
CPT/HCPCS: 36415; 80069; 81001; 82306; 82330; 82570; 83970; 84156; 85027